=== PATIENT | male | born 1970 | race Two or more races ===

== ENCOUNTER 2020-09-28 15:08 | Emergency (ER) | payer MEDICAID, OTHER ==
[~2020-09-28] VITALS: Ht 180.3 cm; Wt 129.3 kg
[2020-09-28 15:57] VITALS: BP 161/90
== END 2020-09-28 18:51 | disposition home or self-care (01) ==
LOC: ER 15:08
DX: U07.1 COVID-19 (principal); J12.82 Pneumonia due to coronavirus disease 2019
CPT/HCPCS: 36415; 71045; 87426

== ENCOUNTER 2022-03-20 12:22 | Emergency (ER) | payer MEDICAID ==
[~2022-03-20] VITALS: Ht 180.3 cm; Wt 135.0 kg
[2022-03-20 15:12] LABS: Basophils # (auto) 0.1 10 ^3/uL (0-0.2); Basophils % (auto) 1.7 % (0.0-2.0); Eosinophils # (auto) 0.3 10 ^3/uL (0-0.8); Eosinophils % (auto) 3.6 % (0.0-7.0); Hematocrit 48.2 % (41.0-53.0); Hemoglobin 15.7 g/dL (13.5-17.5); Lymphocytes # (auto) 2.7 10 ^3/uL (0.4-5.4); Lymphocytes % (auto) 34.9 % (10.0-50.0); Mean Corpuscular Hgb Conc. 32.6 g/dL (32.0-36.0); Mean Corpuscular Volume 85.9 fL (80.0-100.0); Monocytes # (auto) 0.4 10 ^3/uL (0-1.3); Neutrophils # (auto) 4.3 10 ^3/uL (1.6-8.6); Neutrophils % (auto) 54.8 % (37.0-80.0); Nucleated Red Blood Cells % 0.1 %; Red Blood Cells 5.61 10^6/uL (4.5-5.90); Red Cell Distribution Width 13.6 % (11.8-14.3); White Blood Cell 7.8 10^3/uL (4.4-10.8)
[2022-03-20 15:28] LABS: Albumin 3.8 g/dL (3.4-5.0); Potassium 3.6 mmol/L (3.5-5.1)
[2022-03-20 15:32] LABS: BUN/Creatinine Ratio 13.4; Bilirubin, Total 0.7 mg/dL (0.2-1.0); Total Protein 7.6 g/dL (6.4-8.2)
[2022-03-20] MEDS ORDERED: LISI-716 PO (16:31)
[2022-03-20 17:00] VITALS: BP 176/88
== END 2022-03-20 17:46 | disposition home or self-care (01) ==
LOC: ER 12:22
DX: I10 Essential (primary) hypertension (principal); Z76.0 Encounter for issue of repeat prescription
CPT/HCPCS: 36415; 80053; 84484; 85025; 93005

== ENCOUNTER 2023-06-02 19:42 | Emergency (ER) | payer MEDICAID ==
[~2023-06-02] VITALS: Ht 177.8 cm; Wt 131.8 kg
[~2023-06-02 19:42] MED LIST: LISI10TA34 PO
[2023-06-02 20:38] LABS: Basophils # (auto) 0.1 10 ^3/uL (0-0.2); Basophils % (auto) 0.8 % (0.0-2.0); Eosinophils # (auto) 0.2 10 ^3/uL (0-0.8); Eosinophils % (auto) 3.1 % (0.0-7.0); Hematocrit 50.5 % (41.0-53.0); Hemoglobin 16.8 g/dL (13.5-17.5); Lymphocytes # (auto) 2.8 10 ^3/uL (0.4-5.4); Lymphocytes % (auto) 36.8 % (10.0-50.0); Mean Corpuscular Hemoglobin 28.8 pg (28.0-32.0); Mean Corpuscular Hgb Conc. 33.3 g/dL (32.0-36.0); Mean Corpuscular Volume 86.3 fL (80.0-100.0); Monocytes # (auto) 0.4 10 ^3/uL (0-1.3); Monocytes % (auto) 4.7 % (0.0-12.0); Neutrophils # (auto) 4.1 10 ^3/uL (1.6-8.6); Neutrophils % (auto) 54.6 % (37.0-80.0); Nucleated Red Blood Cells % 0.2 %; Red Blood Cells 5.84 10^6/uL (4.5-5.90); Red Cell Distribution Width 13.2 % (11.8-14.3); White Blood Cell 7.5 10^3/uL (4.4-10.8)
[2023-06-02] MEDS ORDERED: ALBUTEROL MEDNEB 2.5 mg/3ml NEB ONE (20:41)
[2023-06-02 20:43] LABS: Alanine Aminotransferase 113 U/L (7-40); Albumin 4.7 g/dL (3.2-4.8); Alkaline Phosphatase 130 U/L (46-116); Anion Gap 8 (5-15); Aspartate Aminotransferase 39 U/L (13-40); BUN/Creatinine Ratio 9.2 (10.0-20.0); Bilirubin, Total 0.5 mg/dL (0.2-1.0); Blood Urea Nitrogen 11 mg/dL (9-23); Calcium 9.8 mg/dL (8.7-10.4); Carbon Dioxide 28 mmol/L (20-30); Chloride 103 mmol/L (98-107); Glucose 198 mg/dL (74-106); Potassium 3.5 mmol/L (3.5-5.1); Sodium 139 mmol/L (136-145)
[2023-06-02] MEDS ORDERED: IPRATROPIUM BROM 0.5 MG/2.5ML INH SOL HHN ONE (20:45)
[2023-06-02] MEDS ORDERED: ALBUTEROL SULF 2.5 MG/0.5ML(0.5%) NEB SOLN HHN ONE (20:45)
[2023-06-02] MEDS ORDERED: predniSONE 20 MG TAB PO ONE (20:45)
[2023-06-02 21:13] LABS: INR 0.98 (0.9-1.15); Partial Thromboplastin Time 27.8 SEC (24.5-34.5); Prothrombin Time 10.3 sec (9.3-11.8)
[2023-06-02] MEDS ORDERED: VALA1TAB PO (21:53)
[2023-06-02] MEDS ORDERED: PRED20TA2 PO (21:53)
[2023-06-02 23:15] VITALS: BP 149/86; PULSE 84; RESP 18; O2SAT 97
== END 2023-06-02 23:18 | disposition home or self-care (01) ==
LOC: ER 19:42
DX: G51.0 Bell's palsy (principal); I10 Essential (primary) hypertension; E78.5 Hyperlipidemia, unspecified
CPT/HCPCS: 36415; 70450; 80053; 83735; 85025; 85610; 85730; 93005; 94640; 99284; J7644

== ENCOUNTER 2025-02-22 21:07 | Emergency (ER) | payer SELFPAY ==
[~2025-02-22] VITALS: Ht 177.8 cm; Wt 129.5 kg
[~2025-02-22 21:07] MED LIST changes: +PRED20TA2 PO; +VALA1TAB PO
[2025-02-22 21:10] VITALS: TEMP 98.1
--- NOTE | 2025-02-22 21:30 | ED.PDOC ---
HPI (NEURO) HPI Comments 54 year old male presents to the ED with a chief complaint of LT sided facial drooping onset 1 day. PMHx HTN, Wang's Palsy, pre DM. Patient states he experienced similar symptoms 2 years ago, facial drooping lasted about 6 months. Patient woke up yesterday, noticed LT sided facial drooping and neck pain. Upon ED arrival, BP was 169/113, ran out of HTN medication. Denies chest pain, shortness of breath, dizziness, blurry vision, nausea, vomiting, diarrhea, abdominal pain, fall, injury, headache, fevers, chills, cold, sore throat, cough. No other symptoms or modifying factors present at this time. Time Seen by MD: 21:20 Primary Care Provider: EDU Reviewed Notes: Medications, Allergies Information Source: Patient Mode of Arrival: Ambulatory Severity: Moderate Timing: Days Duration: Since onset Prehospital treatment: None Modifying factors: Nothing Associated Signs and Symptoms: Other Vital Signs Vital Signs Date Time Temp Pulse Resp B/P (MAP) Pulse Ox O2 Delivery O2 Flow Rate FiO2 02/23/25 00:58 159/101 02/23/25 00:50 Room Air* 0 21 02/23/25 00:23 68 02/22/25 22:37 18 95 02/22/25 21:10 98.1 98.1 Physical Exam PHYSICAL EXAM: General: Awake, alert and oriented. No acute distress. Skin: Skin in warm, dry and intact. Appropriate color for ethnicity. HEENT: The head is normocephalic and atraumatic. Conjunctivae are clear without exudates or hemorrhage. Sclera is non-icteric. EOM are intact. No signs of nystagmus. Eyelids are normal in appearance without swelling or lesions. Oral mucosa is pink and moist Neck: The neck is supple with normal range of motion. No JVD. Cardiac: Heart rate and rhythm are normal. No murmurs, gallops, or rubs are auscultated. Respiratory: No signs of respiratory distress. Lung sounds are clear in all lobes bilaterally without rales, rhonchi, or wheezes. Abdominal: Abdomen is soft, non-tender without distention, guarding or rigidity. Bowel sounds are present and normoactive in all four quadrants. Extremities: Upper and lower extremities are atraumatic in appearance without deformity or edema. Neurological: The patient is awake, alert and oriented to person, place, and time with normal speech. Speech is clear. Left upper and lower facial weakness/droop. Patient is unable to close the left eye. Normal [id number]-[id number] test. Strength in upper and lower extremities intact. Normal gait. Psychiatric: Appropriate mood and affect. Good judgement and insight. Review of Systems: REVIEW OF SYSTEMS: General: No fever, no chills, or fatigue HEENT: No sore throat, no earache, no congestion, no neck pain. Cardiac: No chest pain at this time. No palpitations. Lungs: No shortness of breath, no cough. GI: No nausea, no vomiting, no diarrhea, no constipation, no abdominal pain : No dysuria, frequency, or urgency. No hematuria. Musculoskeletal: No joint pain , no joint swelling, no extremity edema. Skin: No rash, no itching. Neuro: No headache, no dizziness, left upper and lower facial weakness Past Medical History PAST MEDICAL HISTORY: High Lipids, HTN Past Medical History (Other): Wang Palsy's Surgical History: Cholecystectomy Family History Family History: Reviewed,noncontributory to illness Social History Smoker: Non-Smoker Alcohol: Denies ETOH Use Drugs: Denies Drug Use Lives In: Home Was a procedure done? Was a procedure done?: No Differential Diagnosis (SZ) CVA: Wang's Palsy, CVA, Electrolyte Imbalance, Encephalopathy, Hypoglycemia, Mass Lesion, Other X-Ray, Labs, Meds, VS Vital Signs Date Time Temp Pulse Resp B/P (MAP) Pulse Ox O2 Delivery O2 Flow Rate FiO2 02/23/25 00:58 159/101 02/23/25 00:50 Room Air* 0 21 02/23/25 00:23 68 159/101 (120) 02/22/25 22:43 171/102 02/22/25 22:37 66 18 171/102 (125) 95 02/22/25 21:10 98.1 73 15 169/113 (131) 95 98.1 Lab Test 02/22/25 21:41 02/22/25 21:18 Range/Units White Blood Count 8.1 4.4-10.8 10^3/uL Red Blood Count 5.75 4.5-5.90 10^6/uL Hemoglobin 16.7 13.5-17.5 g/dL Hematocrit 48.9 41.0-53.0 % Mean Corpuscular Volume 85.0 80.0-100.0 fL Mean Corpuscular Hemoglobin 29.0 28.0-32.0 pg Mean Corpuscular Hemoglobin Concent 34.2 32.0-36.0 g/dL Red Cell Distribution Width 13.7 11.8-14.3 % Platelet Count 261 140-450 10^3/uL Mean Platelet Volume 9.1 6.9-10.8 fL Neutrophils (%) (Auto) 53.2 37.0-80.0 % Lymphocytes (%) (Auto) 35.8 10.0-50.0 % Monocytes (%) (Auto) 6.2 0.0-12.0 % Eosinophils (%) (Auto) 3.9 0.0-7.0 % Basophils (%) (Auto) 0.9 0.0-2.0 % Neutrophils # (Auto) 4.3 1.6-8.6 10 ^3/uL Lymphocytes # (Auto) 2.9 0.4-5.4 10 ^3/uL Monocytes # (Auto) 0.5 0-1.3 10 ^3/uL Eosinophils # (Auto) 0.3 0-0.8 10 ^3/uL Basophils # (Auto) 0.1 0-0.2 10 ^3/uL Nucleated Red Blood Cells 0.1 % Sodium Level 141 136-145 mmol/L Potassium Level 3.4 L 3.5-5.1 mmol/L Chloride Level 105 98-107 mmol/L Carbon Dioxide Level 28 20-31 mmol/L Anion Gap 8 5-15 Blood Urea Nitrogen 16 9-23 mg/dL Creatinine 1.20 0.700-1.30 mg/dL Glomerular Filtration Rate Calc 72 >90 mL/min BUN/Creatinine Ratio 13.3 10.0-20.0 Serum Glucose 121 H 74-106 mg/dL Calcium Level 10.4 8.7-10.4 mg/dL Troponin I High Sensitivity 8 </=54 ng/L POC Glucose 137 H 70-106 mg/dl Current Medications Medications (Trade) Dose Ordered Sig/Lashawn Route Start Time Stop Time Status Last Admin Amlodipine Besylate (Norvasc Tablet) 10 mg ONCE ONCE PO 02/22/25 22:00 02/22/25 22:01 DC 02/22/25 22:43 Prednisone 60 mg ONCE ONCE PO 02/23/25 00:30 02/23/25 00:31 DC 02/23/25 00:58 Clonidine HCl (Catapres Tablet) 0.1 mg ONCE ONCE PO 02/23/25 00:45 02/23/25 00:46 DC 02/23/25 00:[address] [address] Ph: [phone] DIAGNOSTIC IMAGING Diagnostic Imaging Report : [id number] Signed PATIENT: MERRITT HARLEY ACCT: [id number] UNIT: [id number] : 1970 LOC: ER ROOM / BED: / AGE / SEX: 54 / M ADM STATUS: REG ER SERVICE 30 ORDERING PHYSICIAN: CARYN FITCH MD PROCEDURE(s): HWOCT - HEAD WITHOUT CONTRAST REASON: Left facial droop ORDER NUMBER(s): [id number], ACCESSION NUMBER(s): [id number] EXAM: CT HEAD WITHOUT CONTRAST INDICATION: Left facial droop TECHNIQUE: CT of the head without intravenous contrast. Radiation Dose Information: CT Dose: CTDI volume is 63.8 mGy. Dose-length prod uct is 1022.5 mGy*cm The dose indicators for CT are the volume Computed Tomography (CT) Dose Index (CTDIvol) and the Dose Length Product (DLP), and are measured in units of mGy and mGy-cm, respectively. These indicators are not patient dose, but values g enerated from the CT scanner acquisition factors. The report includes radiation exposure data for exposures received during this examination. COMPARISON: CT STROKE CTH on DOS: 06/02/23 FINDINGS: There is no evidence of acute intracranial hemorrhage, extra-axial collection, mass effect, midline shift, herniation or hydrocephalus. The ventricles, sulci and cisterns are age appropriate. The carmona-white differentiation is intact. Patchy periventricular and subcortical white matter hypoattenuation is nonspecific but may be related to small vessel ischemic disease. The visualized paranasal sinuses and mastoid air cells are clear. The surrounding soft tissues and osseous structures are unremarkable. IMPRESSION: 1. No acute intracranial abnormality. ATED BY: SUNIL BALBUENA Jr., DO DICTATED DATE/TIME: 02/22/252211 SIGNED BY: SUNIL BALBUENA Jr., SIGNED DATE/TIME: 02/22/252211 CC: Time of 1ST Reevaluation: 21:50 Reevaluation 1ST: Unchanged Patient Education/Counseling: Diagnosis, Treatment, Need For Follow Up Family Education/Counseling: No Family Present Departure 1 Departure Time of Disposition: 00:24 Impression: Primary Impression: Wang's palsy Additional Impression: Hypertension Disposition: HOME / SELF CARE / HOMELESS Condition: Stable Additional Instructions: ED DISCHARGE INSTRUCTIONS Instructions: Please read all instructions provided in this packet carefully. Although you have been discharged from the Emergency Department, this does not mean that you have a "clean bill of health". []No definitive diagnosis for your symptoms has been made today. It is possible that you are in the process of developing a serious illness. This is why you must return to the ED without fail if any new or worsening symptoms (especially if your symptoms include chest pain, trouble breathing, abdominal pain, fever, headache, confusion, trouble seeing, or trouble walking) It is also very important that you see a primary care provider (PCP) within the next 3-5 days to follow up. If you are unable to get an appointment, return to the ED for re-evaluation. You had elevated blood pressure reading today. It is very important that you ta ke your blood pressure medication as prescribed. Untreated high blood pressure can have serious consequences. You need a follow-up appointment to recheck your blood pressure to determine whether or not you need a change treatment. Make an appointment with your primary care provider for this within the next week. e-Prescriptions Atorvastatin Calcium (ATORVASTATIN CALCIUM) 20 Mg Tab 1 TAB PO DAILY for 15 Days, #15 TAB 5 Refills Prov: CARYN FITCH MD 02/23/25 Amlodipine Besylate (Amlodipine Besylate) 10 Mg Tab 1 TAB PO DAILY for 15 Days, #15 TAB 5 Refills Prov: CARYN FITCH MD 02/23/25 Lisinopril (Lisinopril) 20 Mg Tab 1 TAB PO DAILY for 15 Days, #15 TAB 5 Refills Prov: CARYN FITCH MD 02/23/25 Hydrochlorothiazide (Hydrochlorothiazide) 12.5 Mg Cap 1 CAP PO DAILY for 15 Days, #30 CAP 5 Refills Prov: CARYN FITCH MD 02/23/25 Prednisone (Prednisone) 20 Mg Tab 60 MG PO DAILY for 6 Days, #6 MG Prov: CARYN FITCH MD 02/23/25 Comments MDM: 54-year-old male with left bur and lower facial weakness ongoing for over 24 hours. We will discharge home with script for prednisone for treatment of Wang's palsy Imaging negative, do not suspect acute CVA I reviewed the following notes from the pt's past medical encounters: N/A The following tests were ordered, and results were reviewed by me: (See diagnostic results section) The following test were independently interpreted by me: N/A Additional information was gathered from interviewing the following independent historians: N/A I discussed treatments and results with patient Decision regarding hospitalization or escalation of hospital level of care: Risks and benefits of admission for further treatment of patient's condition was considered however due to patient's stable condition patient will be discharged to follow up closely or return to care for worsening of condition or inability to follow up. Critical Care Note Critical Care Time?: No Stability Stability form required: No I personally scribed for CARYN FITCH MD ([email or web address]) on 02/22/25 at 21:30. Electronically submitted by Nereyda Dorsey ([email or web address]). I personally scribed for CARYN FITCH MD ([email or web address]) on 02/22/25 at 22:30. Electronically submitted by Nereyda Dorsey ([email or web address]). CARYN FITCH MD Feb 22, 2025 21:30
[2025-02-22 21:54] LABS: Hematocrit 48.9 % (41.0-53.0); Hemoglobin 16.7 g/dL (13.5-17.5); Mean Corpuscular Hemoglobin 29.0 pg (28.0-32.0); Mean Corpuscular Volume 85.0 fL (80.0-100.0); Nucleated Red Blood Cells % 0.1 %
[2025-02-22 22:03] LABS: Chloride 105 mmol/L (98-107); Sodium 141 mmol/L (136-145)
[2025-02-22 22:04] LABS: Anion Gap 8 (5-15); Carbon Dioxide 28 mmol/L (20-31)
[2025-02-22 22:09] LABS: BUN/Creatinine Ratio 13.3 (10.0-20.0); Blood Urea Nitrogen 16 mg/dL (9-23)
[2025-02-22 22:13] LABS: Calcium 10.4 mg/dL (8.7-10.4); Glucose 121 mg/dL (74-106); Potassium 3.4 mmol/L (3.5-5.1)
--- NOTE | 2025-02-22 22:14 | DVH ---
EXAM: CT HEAD WITHOUT CONTRAST INDICATION: Left facial droop TECHNIQUE: CT of the head without intravenous contrast. Radiation Dose Information: CT Dose: CTDI volume is 63.8 mGy. Dose-length product is 1022.5 mGy*cm The dose indicators for CT are the volume Computed Tomography (CT) Dose Index (CTDIvol) and the Dose Length Product (DLP), and are measured in units of mGy and mGy-cm, respectively. These indicators are not patient dose, but values generated from the CT scanner acquisition factors. The report includes radiation exposure data for exposures received during this examination. COMPARISON: CT STROKE CTH on DOS: 06/02/23 FINDINGS: There is no evidence of acute intracranial hemorrhage, extra-axial collection, mass effect, midline s hift, herniation or hydrocephalus. The ventricles, sulci and cisterns are age appropriate. The carmona-white differentiation is intact. Patchy periventricular and subcortical white matter hypoattenuation is nonspecific but may be related to small vessel ischemic disease. The visualized paranasal sinuses and mastoid air cells are clear. The surrounding soft tissues and osseous structures are unremarkable. IMPRESSION: 1. No acute intracranial abnormality.
[2025-02-22 22:37] VITALS: RESP 18; O2SAT 95
[2025-02-23 00:23] VITALS: BP 159/101; PULSE 68
[2025-02-23] MEDS ORDERED: PRED20TA2 PO (00:27)
[2025-02-23] MEDS ORDERED: HYDR12.59 PO (00:27)
[2025-02-23] MEDS ORDERED: LISI20TA56 PO (00:27)
[2025-02-23] MEDS ORDERED: AMLO1TAB23 PO (00:27)
[2025-02-23] MEDS ORDERED: ATOR20TA50 PO (00:27)
[2025-02-23] MEDS: predniSONE 20 MG TAB PO ONE (00:58)
== END 2025-02-23 01:00 | disposition home or self-care (01) ==
LOC: ER 21:07
DX: G51.0 Bell's palsy (principal); I10 Essential (primary) hypertension; E78.5 Hyperlipidemia, unspecified; Z79.899 Other long term (current) drug therapy; Z90.49 Acquired absence of other specified parts of digestive tract
CPT/HCPCS: 36415; 70450; 80048; 82947; 84484; 85025; 99284; J7512; 82962